=== PATIENT | female | born 1975 | race Caucasian/White ===

== ENCOUNTER 2018-06-05 15:42 | Emergency (ER) | payer OTHER ==
[~2018-06-05] VITALS: Ht 160 cm; Wt 99.9 kg
[2018-06-05] MEDS ORDERED: ROBA500T PO (17:22)
[2018-06-05] MEDS ORDERED: IBUP-1022 PO (17:22)
[2018-06-05 17:26] VITALS: BP 148/81
--- NOTE | 2018-06-05 18:48 | REP ---
RIGHT ELBOW, FOUR VIEWS: HISTORY: Elbow pain. There is no acute fracture or dislocation. The joint space is normal in appearance. IMPRESSION:There is no acute fracture or dislocation. Electronically Signed by Salvador Cross MD 06/05/2018 06:58 P
--- NOTE | 2018-06-05 18:49 | REP ---
UNILATERAL RIGHT RIBS, PA CHEST, FIVE VIEWS: HISTORY: Rib pain. The lungs are clear. The heart is normal in size. The pulmonary vasculature os normal in appearance. The bony structure is intact. IMPRESSION:No acute disease. Electronically Signed by Salvador Cross MD 06/05/2018 06:59 P
== END 2018-06-05 17:29 | disposition home or self-care (01) ==
LOC: M ED 15:42
DX: S50.01XA Contusion of right elbow, initial encounter (principal); S20.221A Contusion of right back wall of thorax, initial encounter; V43.52XA Car driver injured in collision with other type car in traffic accident, initial encounter; Y92.9 Unspecified place or not applicable; Y93.9 Activity, unspecified; Y99.9 Unspecified external cause status; Z88.5 Allergy status to narcotic agent; Z88.6 Allergy status to analgesic agent; Z91.018 Allergy to other foods

== ENCOUNTER → 2020-09-14 | Outpatient (CLI) | payer OTHER ==
[~2020-09-14] MED LIST: IBUP-1022 PO; ROBA500T PO; ULTR50TA8 PO
[2020-09-14 15:57] LABS: BASO # 0.1 10^3/uL (0.0-0.2); BASO % 0.9 % (0.0-1.0); EOS # 0.1 10^3/uL (0.0-0.5); EOS % 0.8 % (0.0-3.0); HEMATOCRIT 32.1 % (36.0-47.0); HEMOGLOBIN 9.2 g/dl (12.0-15.5); LYMPH # 1.7 10^3/uL (1.5-5.0); LYMPH % 21.1 % (24.0-44.0); MEAN CORPUSCULAR HEMOGLOBIN 20.6 pg (27.0-33.0); MEAN CORPUSCULAR HGB CONC 28.7 g/dl (32.0-36.5); MEAN CORPUSCULAR VOLUME 71.8 fl (80.0-96.0); MONO # 0.6 10^3/uL (0.0-0.8); MONO % 7.2 % (2.0-8.0); NEUTROPHILS # 5.5 10^3/uL (1.5-8.5); NEUTROPHILS % 69.7 % (36.0-66.0); PLATELET COUNT, AUTOMATED 294 10^3/uL (150-450); RED BLOOD COUNT 4.47 10^6/uL (4.00-5.40); WHITE BLOOD COUNT 7.8 10^3/uL (4.0-10.0)
[2020-09-14 16:27] LABS: ERYTHROCYTE SEDIMENTATION RATE 44 mm/hr (0-20)
== END ==
LOC: M RAD 15:23
PROVIDERS: ATTEND Physician Assistant
DX: N63.21 Unspecified lump in the left breast, upper outer quadrant (principal)

== ENCOUNTER → 2020-09-24 | Outpatient (REF) | payer OTHER ==
[~2020-09-24] MED LIST changes: -ULTR50TA8 PO
== END ==
LOC: M SFHCWAGY 18:18
PROVIDERS: ATTEND Surgery
DX: L98.9 Disorder of the skin and subcutaneous tissue, unspecified (principal)

== ENCOUNTER → 2020-09-29 | Outpatient (CLI) | payer OTHER ==
[2020-09-29 16:24] VITALS: BP 138/84
--- NOTE | 2020-09-30 08:57 | REP ---
INDICATION: N63.20 LT BREAST LUMP,POST US GUIDED BX,N63.10 RT BREAST MAS. COMPARISON: None TECHNIQUE: Bilateral diagnostic digital mammography was carried out in the CC and MLO projections using both 2D and 3D modalities. There are no priors for comparison. By history, patient complains of a left axillary mass. Patient also complains of a palpable abnormality in the right breast near the 12 o'clock position and an additional palpable area in the left breast upper outer quadrant. Bilateral diagnostic ultrasonography was also performed using anatomical intelligence and shear wave elastography FINDINGS: The breasts are symmetric in size and shape. Dense heterogenous nodular fibroglandular elements are seen bilaterally to such a degree that the sensitivity of the mammogram in detecting cancer is decreased. The breasts are symmetric in size and shape. There is a large axillary mass left breast. Spot compression views of the left breast over the additional palpable abnormality reveals no definite mass. Dense nodular breast tissue was identified. The right breast spot compression views over the region of interest shows no evidence of a mass. Dense nodular breast tissue was identified. Diagnostic ultrasound left breast upper outer quadrant near 1 o'clock in the region of the palpable mass shows a solid 0.8 x 0.4 x 0.6 cm size nodule. Shear wave elastography was performed on this showing kPa values in the 20s. Diagnostic ultrasound right breast at the 12 o'clock region of interest shows an irregular solid nodule which measures 7 x 3 x 5 mm. Shear wave elastography was performed on this again showing kPa values in the 20s. The large left breast axillary mass was not evaluated with ultrasound since I have been given history prior to reading this examination that biopsy of this has been pre determined by the referring physician. That was at least in part based on the ultrasound which was performed on 09/14/2020 which showed a solid mass corresponding to the palpable abnormality seen on the left breast MLO today. The Volpara volumetric breast density pattern is C. IMPRESSION: BIRADS/ACR category 4 mammogram and bilateral breast ultrasound. Two solid nodules are seen ultrasonographically 1 in each breast, as described above, and for which biopsy is recommended. Additionally, there is a large left breast axillary mass seen on today's mammogram and on a prior ultrasound as described above. Due to the patient's breast density score of C consider bilateral whole breast screening ultrasound and breast MRI. This patient's Tyrer-Cuzick lifetime breast cancer risk assessment score is 12%. This mammogram was interpreted with the aid of an FDA-approved computer-aided detection system. The patient states she had a clinical breast exam in September 2020. The patient letter being requested is M4. RECOMMENDATION: As above <Electronically signed by Sandoval Cho > 09/30/20 0834
--- NOTE | 2020-10-05 20:09 | ROOPDOC ---
[facility] Report Of Operation Report of Operation DATE OF PROCEDURE: 09/29/20 DIAGNOSIS: left breast suspicious lesion PROCEDURE: ultrasound guided biopsy of the left breast suspicious lesion with clip placement SURGEON: Bree Flowers BLOOD LOSS: minimal COMPLICATIONS: none Lidocaine 1% LOT [id number] Expiration 05/2023 Sodium Bicarbonate 8.4% LOT [id number] Expiration 03/2021 Hydromark clip LOT [id number] Expiration 01/2023 SHAPE: 4 Bx device: BARD Awyezxo59O x10 cm LOT [id number] Expiration 05/2023 Informed consent was obtained. The most common risk and possible complications including bleeding, hematoma, bruising, infection, injury to surrounding structures were explained to the patient and the patient expressed understanding. Patient was placed on the bed in the supine position. Appropriate time out was done stating patients name, date of , and the procedure to be performed. The left breast was prepped and draped in the usual fashion. The ultrasound was used to confirm the location of the lesion in the left breast extending from 11:00 to 2:00 in the upper breast. Plain Lidocaine 1% and 8.4% sodium bicarbonate 10:1 mix was used to anesthetize the skin, the biopsy site and tissues along the anticipated biopsy tract. Small skin incision was made with blade number 11. BARD Marquee 14G cannula with introducer ([id number]) was inserted through the incision and advanced under the ultrasound guidance to position immediately adjacent to the lesion. Next, the introducer was removed and BARD Marquee 14G biopsy device was places in the cannula. Pre-biopsy imaging, and post-biopsy imaging were captured. Five good core biopsies were taken at various levels of the lesion. Specimen was placed in formaldehyde, labeled with appropriate biopsy site and patients name, and sent to pathology for evaluation. Next, the biopsy device was withdrawn and a clip introducer was inserted into the biopsy site via the cannula. SHAPE 4 Hydromark clip was deployed under sonographic guidance. Post-clip placement image was captured. Manual pressure over the biopsy cavity and tract was held after the clip intr oducer was withdrawn. No bleeding was noted upon removal of the pressure. Post-biopsy mammogram of the left breast was obtained and showed clip in expected position. Postprocedural dressing was placed. Patient tolerated procedure well. Discharge instructions were discussed with the patient and the patient expressed understanding. BREE FLOWERS DO Oct 05, 2020 20:09
== END ==
LOC: M WHCPRO 06:34
PROVIDERS: ATTEND Surgery
DX: N60.22 Fibroadenosis of left breast (principal)
CPT/HCPCS: 19083; 76642; 77066; 88305; G0279

== ENCOUNTER → 2020-10-06 | Outpatient (CLI) | payer OTHER ==
[2020-10-06 12:10] VITALS: BP 148/86
--- NOTE | 2020-10-06 13:02 | REP ---
INDICATION: N63.10 RT BREAST MASS. COMPARISON: Comparison sonography 29 September 2020. TECHNIQUE: Targeted right breast sonography. 12-1 o'clock region. FINDINGS: Previous right breast sonography showed a 7 mm hypoechoic area 3.9 cm from the nipple. this oval-shaped hypoechoic nodule is again seen measuring 7 x 3 by 4 mm. This is to be targeted by ultrasound guided needle biopsy procedure following this exam by Dr. Bailon. 5 cm from the nipple at the 12 o'clock position, there is a somewhat angular appearing hypoechoic nodule measuring 6 x 2 x 4 mm. Because of this angular margin, this nodule is is to be targeted by ultrasound guided needle biopsy performed by Dr. Bailon as well. At the 1 o'clock position, 6 cm from the nipple there is a 6 x 5 x 4 mm hypoechoic area with a echogenic hilar notch like configuration most consistent with a small intramammary lymph node. IMPRESSION: Three hypoechoic nodules are identified in the right breast as above. Two of these are sampled histologically under ultrasound guidance by Dr. Bailon just following the study. The 3rd is felt to be BI-RADS category 3 probably benign finding most likely a 6 mm intramammary lymph node. Consider six-month follow-up sonography. <Electronically signed by Alberto Osborn > 10/06/20 [id number]
--- NOTE | 2020-10-06 21:23 | ROOPDOC ---
[facility] Report Of Operation Report of Operation DATE OF PROCEDURE: 10/06/20 DIAGNOSIS: bilateral suspicious breast lesions in Right breast at 12:00 3 CFN, Right breast at 12:00 5 CFN, and Left breast at 1:00 5CFN PROCEDURE: ultrasound guided biopsy of bilateral suspicious breast lesions in Right breast at 12:00 3 CFN, Right breast at 12:00 5 CFN, and Left breast at 1:00 5CFN with clips placement SURGEON: Bree Flowers BLOOD LOSS: minimal COMPLICATIONS: none Lidocaine 1% LOT [id number] Expiration 03/2024 Sodium Bicarbonate 8.4% LOT [id number] Expiration 03/2021 LEFT BREAST BIOPSY 1:00 5CFN Hydromark clip LOT [id number] Expiration 06/2023 SHAPE: 3 Bx device: BARD Zatynct78R x10 cm LOT [id number] Expiration 12/2022 RIGHT BREAST BIOPSY 12:00 3CFN Hydromark clip LOT [id number] Expiration 06/2023 SHAPE: 3 Bx device: BARD Czbontn63O x10 cm LOT [id number] Expiration 12/2022 RIGHT BREAST BIOPSY 12:00 5CFN Hydromark clip LOT [id number] Expiration 06/2023 SHAPE: 4 Bx device: BARD Scghexl74C x10 cm LOT [id number] Expiration 12/2022 Informed consent was obtained. The most common risk and possible complications including bleeding, hematoma, bruising, infection, injury to surrounding structures were explained to the patient and the patient expressed understanding. Patient was placed on the bed in the supine position. Appropriate time out was done stating patients name, date of , and the procedure to be performed. Upon sonographic examination of the left and right breasts it was noted that in the right breast, in addition to lesion at 12:00 3CFN, there is additional suspicious lesion at 12:00 5CFN and 1:00 6CFN. Formal US of those lesions was done and STAT read was requested. I discussed case with Dr Osborn, who suggested doing biopsy the lesion at 12:00 5 CFN in addition to biopsy of the lesion at 12:[address] Osborn felt that the right breast 1:00 lesion may represent intramammary lymph node. BIRADS 3 category was assigned to this lesion and 6 mnth sonographic examination was recommended. Procedure was started with left breast biopsy. The left breast was prepped and draped in the usual fashion. The ultrasound was used to confirm the location of the lesion in the left breast at 1:00 5 centimeters from the nipple. Plain Lidocaine 1% and 8.4% sodium bicarbonate 10:1 mix was used to anesthetize the skin, the biopsy site and tissues along the anticipated biopsy tract. Small skin incision was made with blade number 11. BARD Marquee 14G cannula with introducer ([id number]) was inserted through the incision and advanced under the ultrasound guidance to position immediately adjacent to the lesion. Next, the introducer was removed and BARD Marquee 14G biopsy device was places in the cannula. Pre-biopsy imaging, and post-biopsy imaging were captured. Five good core biopsies were taken at various levels of the lesion. Specimen was placed in formaldehyde, labeled with appropriate biopsy site and patients name, and sent to pathology for evaluation. Next, the biopsy device was withdrawn and a clip introducer was inserted into the biopsy site via the cannula. SHAPE 3Hydromark clip was deployed under sonographic guidance. Post-clip placement image was captured. Manual pressure over the biopsy cavity and tract was held after the clip introducer was withdrawn. No bleeding was noted upon removal of the pressure. At this point our attention was turned toward the right breast. We started with the lesion at 12:00 3 CFN. The right breast was prepped and draped in the usual fashion. The ultrasound was used to confirm the location of the lesion in the right breast at 12:00 3 centimeters from the nipple. Plain Lidocaine 1% and 8.4% sodium bicarbonate 10:1 mix was used to anesthetize the skin, the biopsy site and tissues along the anticipated biopsy tract. Small skin incision was made with blade number 11. BARD Marquee 14G cannula with introducer ([id number]) was inserted through the incision and advanced under the ultrasound guidance to position immediately adjacent to the lesion. Next, the introducer was removed and BARD Marquee 14G biopsy device was places in the cannula. Pre-biopsy imaging, and post-biopsy imaging were captured. Five good core biopsies were taken at various levels of the lesion. Specimen was placed in formaldehyde, labeled with appropriate biopsy site and patients name, and sent to pathology for evaluation. Next, the biopsy device was withdrawn and a clip introducer was inserted into the biopsy site via the cannula. SHAPE 3 Hydromark clip was deployed under sonographic guidance. Post-clip placement image was captured. Manual pressure over the biopsy cavity and tract was held after the clip introducer was withdrawn. No bleeding was noted upon removal of the pressure. Next, we proceeded with the biopsy of right breast at 12:00 5 CFN. The ultrasound was used to confirm the location of the lesion in the right breast at that site. Plain Lidocaine 1% and 8.4% sodium bicarbonate 10:1 mix was used to anesthetize the skin, the biopsy site and tissues along the anticipated biopsy tract. Small skin incision was made with blade number 11. BARD Marquee 14G cannula with introducer ([id number]) was inserted through the incision and advanced under the ultrasound guidance to position immediately adjacent to the lesion. Next, the introducer was removed and BARD Marquee 14G biopsy device was places in the cannula. Pre-biopsy imaging, and post-biopsy imaging were captured. Three good core biopsies were taken at various levels of the lesion. No additional samples were taken as the lesion become poorly visible. Specimen was placed in formaldehyde, labeled with appropriate biopsy site and patients name, and sent to pathology for evaluation. Next, the biopsy device was withdrawn and a clip introducer was inserted into the biopsy site via the cannula. SHAPE 4 Hydromark clip was deployed under sonographic guidance. Post-clip placement image was captured. Manual pressure over the biopsy cavity and tract was held after the clip in troducer was withdrawn. No bleeding was noted upon removal of the pressure. Post-biopsy mammography of the bilateral breasts was obtained and showed clips in expected position. Postprocedural dressing was placed. Patient tolerated procedure well. Discharge instructions were discussed with the patient and the patient expressed understanding. BREE FLOWERS DO Oct 06, 2020 21:23
== END ==
LOC: M WHCPRO 06:38
PROVIDERS: ATTEND Surgery
DX: D24.1 Benign neoplasm of right breast (principal); D24.2 Benign neoplasm of left breast; N60.21 Fibroadenosis of right breast; N60.12 Diffuse cystic mastopathy of left breast; N63.20 Unspecified lump in the left breast, unspecified quadrant; N63.10 Unspecified lump in the right breast, unspecified quadrant

== ENCOUNTER → 2020-11-08 | Outpatient (CLI) | payer OTHER ==
[~2020-11-08] MED LIST changes: +PROHANCE 279.3MG/ML 15ML VIAL As Ordered ONE; +PROHANCE 279.3MG/ML 5ML VIAL As Ordered ONE
--- NOTE | 2020-11-08 15:57 | REP ---
INDICATION: ELKE BREAST MASS. 5.6 cm fibroadenoma by biopsy and recent breast imaging in the left breast superiorly. 11 o'clock position. COMPARISON: Comparison mammography September 29, 2020. Comparison left breast sonography September 14, 2020. Comparison sonography October 06, 2020 and mammography October 06, 2020. Patient is status post bilateral breast biopsies. TECHNIQUE: Three Alisa MRI imaging was performed with a dedicated breast coil. Axial, coronal, and sagittal T1 and T2 weighted scans were obtained with and without fat saturation in the usual fashion. The study includes dynamically acquired post gadolinium-enhanced imaging with image subtraction. Maximum intensity projection and multi planar reformation imaging is included as well. This study is interpreted with the aid of [employer], an FDA approved computer aided detection (CAD) software program, on a dedicated breast MRI workstation. The gadolinium enhancement dose is 18 mL of intravenous ProHance. FINDINGS: There is a moderate amount of fibroglandular tissue bilaterally corresponding with the mammographic pattern. There is mild to moderate background parenchymal enhancement. There is no evidence of axillary lymphadenopathy or significant breast cystic change. High-resolution pre and post-contrast T1 and T2 weighted scans show no suspicious morphologic abnormality in either breast. Dynamically acquired sequential postcontrast images show no suspicious area of enhancement and washout kinetics in either breast to suggest malignancy. Subtraction images show no additional abnormality. There are 2 HydroMARK needle biopsy device is in the right breast and 1 is visible in the left breast upper outer quadrant. There also appears to be a HydroMARK clip device in the large known left superior breast mass in the 11 o'clock position. This T2 hyperintense heterogeneous mass recently diagnosis fibroadenoma measures 4.5 cm right to left by 6.7 cm anterior to posterior by 3.1 cm cranial to caudal. It is heterogeneously T2 hyperintense and T1 hypointense with fairly homogeneous contrast enhancement. Its enhancement kinetics are type 3 continuous or benign pattern. In addition, in the medial aspect anterior 3rd left breast, there is a smaller enhancing mass with nonenhancing internal septations consistent with a benign fibroadenoma. This demonstrates type 3 enhancement characteristics as well. This measures 1.3 cm in greatest diameter. There does not appear to be a marker clip adjacent to this lesion. There is no suspicious morphologic mat abnormality in the right breast. No other mass lesion is observed. IMPRESSION: BI-RADS category 4 suspicious bilateral breast MRI findings. The recently biopsied enhancing mass in the left breast superiorly measures 6.7 cm in greatest diameter. Given its size, this should be surgically excised despite the benign fibroadenoma pathologic diagnosis. There is a 2nd 1.3 cm fibroadenoma in the medial aspect of the left breast. Needle biopsy marker clips as above. <Electronically signed by Alberto Osborn > 11/08/20 [id number]
== END ==
LOC: M RAD 13:01
PROVIDERS: ATTEND Surgery
DX: N63.20 Unspecified lump in the left breast, unspecified quadrant (principal); N63.10 Unspecified lump in the right breast, unspecified quadrant
CPT/HCPCS: A9576; C8908

== ENCOUNTER 2020-11-16 06:04 | Day surgery (SDC) | payer OTHER ==
[~2020-11-16] VITALS: Ht 160 cm; Wt 90.3 kg
[~2020-11-16 06:04] MED LIST changes: +HEPARIN SOD (PORCINE) 5000UNITS/ML 1ML VIAL/SYRINGE SQ ONE; +LR 1,000 ML IV ONE; -PROHANCE 279.3MG/ML 15ML VIAL As Ordered ONE; -PROHANCE 279.3MG/ML 5ML VIAL As Ordered ONE; +ceFAZolin SOD 1 GM in D5W MINI-BAG PLUS 50 ML IV ONE
[2020-11-16] MEDS ORDERED: ceFAZolin SOD 1 GM in D5W MINI-BAG PLUS 50 ML IV ONE (06:05)
[2020-11-16] MEDS ORDERED: MIDAZOLAM INJ 2MG/2ML VIAL (J2250 PER 1MG) As Ordered ONE (07:00)
[2020-11-16] MEDS ORDERED: fentaNYL 100 MCG/2 ML INJECTION (J3010) As Ordered ONE ×2 (07:01→08:08)
[2020-11-16] MEDS ORDERED: LIDOCAINE 2% 100MG/5ML SDV (FOR ANES.) As Ordered ONE (07:03)
[2020-11-16] MEDS ORDERED: LIDOCAINE 1% SDV 30ML VIAL As Ordered ONE (07:14)
[2020-11-16] MEDS ORDERED: BUPIVACAINE HCL 0.25% 30ML VIAL As Ordered ONE (07:14)
[2020-11-16] MEDS ORDERED: propofoL 200 MG/20 ML VIAL As Ordered ONE ×2 (07:43→08:10)
[2020-11-16] MEDS ORDERED: dexameTHASONE 4 MG/ML 1ML VIAL (J1100 PER 1MG) As Ordered ONE (07:43)
[2020-11-16] MEDS ORDERED: ACETAMINOPHEN 1000MG 100ML IV BTL (OFIRMEV) (J0131 PER 10MG) As Ordered ONE (07:48)
[2020-11-16] MEDS ORDERED: ONDANSETRON 4MG/2ML VIAL As Ordered ONE (07:55)
[2020-11-16] MEDS ORDERED: ePHEDrine SULFATE 25 MG/5 ML(5MG/ML) SYRINGE As Ordered ONE (07:57)
[2020-11-16] MEDS ORDERED: ULTR50TA8 PO (09:46)
[2020-11-16] MEDS ORDERED: fentaNYL 100 MCG/2 ML INJECTION (J3010) IV PRN (09:55)
[2020-11-16] MEDS ORDERED: LR 1,000 ML IV SCH (09:55)
[2020-11-16] MEDS ORDERED: ONDANSETRON 4MG/2ML VIAL IV PRN (09:55)
[2020-11-16 11:10] VITALS: BP 128/80
--- NOTE | 2020-11-16 14:42 | REP ---
INDICATION: LEFT BREAST BIOPSY. COMPARISON: Comparison mammography September 29, 2020. TECHNIQUE: Specimen radiography, total of 8 views including photographs. FINDINGS: A sequence of 8 images demonstrate 2 surgical specimens 16.6 cm in diameter which contains a needle biopsy marker clip and the other 1.9 cm in diameter. Neither of these contains microcalcifications. IMPRESSION: Specimen radiography left breast. <Electronically signed by Alberto Osborn > 11/16/20 1922
--- NOTE | 2020-11-16 19:58 | ROOPDOC ---
[facility] Report Of Operation Report of Operation DATE OF PROCEDURE: 11/16/20 PREPROCEDURE DIAGNOSES: Large left breast fibroadenoma at 12:00 and second left breast mass at 9:00 POSTPROCEDURE DIAGNOSES: same PROCEDURE PERFORMED: Left breast excisional biopsy at 12:00 and at 9:00 SURGEON: Dr Bree Bailon ANESTHESIA: general ESTIMATED BLOOD LOSS: Approximately 15 mL. COMPLICATIONS: none SPECIMENS REMOVED: left breast 12:00 and 9:00 excisional biopsy - see below for details PROCEDURE NOTE: INDICATIONS: Ms. Landry is a 45-year-old woman who was found to have large palpable mass in the left breast. Diagnostic imaging was done and confirmed presence of large left breast mass which was considered suspicious. US guided biopsy was done since the lesion was also seen on sonography. Pathology showed fibroadenoma. Patient underwent MRI of the breast. Second mass in the left medial breast was found on MRI. This had characteristics of fibroadenoma as well. Excisional biopsy of the left breast was offered to the patient due to the size of large fibroadenoma. I discussed with the patient that if I am able to easily identify the second mass which was seen on MRI of the breast, I will remove it at the time of index surgery. Patient wished to proceed. Patient was medically cleared for surgery by the primary care doctor. Risks and possible complications of surgical procedure including bleeding, infection and injury to surrounding structures were explained to the patient and she wished to proceed. Consent was signed. My initials were placed on the operative site. Subcutaneous injection of 5000 units of heparin was done in Preop. DETAILS: Patient was taken to the operating room and placed on the operating room table. A sign in was called stating patients name, date of and the procedure to be done. Preoperative antibiotics were infused. Smooth induction of general anesthesia was done. Patients hands were extended on arm rests. Care was taken not to over extend the arms. Pillow was placed under the knees and a foam was placed under the heels. Sequential compression devices were placed and assured to function correctly. Patients left breast and axilla were prepped and draped in the usual fashion. Appropriate time out was done. Patients name, date of , and the procedure to be done were confirmed. Intraop Ultrasound was used to confirm location of the large palpable mass at 12:00. Hydromark clip was also noted inside the mass. Limited US of the left medial breast also showed possible sonographic correlate to MRI visible new mass. This is located at 9:00. Next, local anesthetic using 1% lidocaine and 0.25 % Marcaine 50/50 mix was injected at the site of planned left periareolar incision. The incision was made with the scalpel. Subcutaneous skin flaps were raised. Sharp dissection was carried toward the palpable mass. Intraop US was again used to guide the dissection. Palpable mass capsule was noted. Blunt dissection was done at this point to free the palpable mass from the surrounding attachments. Anchoring stitch was also placed to allow manipulation of the mass and to continue separation of the deeper aspects of the mass from the surrounding tissues. The excisional biopsy specimen was carefully removed from the breast keeping its proper orientation and moved to the back table where margins were marked with the surgical inking kit following the standard colors recommendations. Specimen measured 6x5 cm. Specimen was then placed on the grid and placed in [email or web address] Specimen Imaging System. The image revealed large mass with hydromark clip in the specimen. The specimen was labeled with patients name and left excisional biopsy at 12:00 and sent to pathology. At this time, my attention was turned toward the possible sonographic correlate of a mass seen on MRI of the breast. Intraop US was used to identify the lesion again at 9:00. Gentle dissection was carried toward the are of sonographic target. A white and dense lesion was identified and carefully excised. This is felt to correspond with MRI visible target. While keeping its proper orientation, the second specimen was then moved to the back table where margins were marked with the surgical inking kit following the standard colors recommendations. Specimen measured 2x2 cm. Specimen was then placed on the grid and placed in [email or web address] Specimen Imaging System. The image revealed a small mass without calcifications. The specimen was labeled with patients name and left excisional biopsy at 9:00 and sent to pathology. Next, the wound was irrigated thoroughly and adequate hemostasis was assured. Additional local anesthetic was injected into surrounding tissues. space was approximated with 2-0 Vicryl. The dermis was closed with 3-0 Vicryl and skin was closed with 4-0 Monocryl. Surgical glue was placed over the incision. Patient emerged from the anesthesia without any problems. Fluffs were placed over the operative site and patients chest was wrapped snuggly in the SAMANTHA wrap. Sponge and instrument counts were done and were correct. Patient tolerated procedure well and was taken to recovery unit in stable condition. BREE BAILON DO Nov 16, 2020 19:58
== END 2020-11-16 11:13 | disposition home or self-care (01) ==
LOC: M SDC 06:04
PROVIDERS: ATTEND Surgery
DX: D24.2 Benign neoplasm of left breast (principal); Z87.891 Personal history of nicotine dependence; Z88.5 Allergy status to narcotic agent; Z91.013 Allergy to seafood; Z91.018 Allergy to other foods
CPT/HCPCS: 19125; 19126; 36415; 81025; 86850; 86900; 86901; 88305; J0131; J0690; J1100; J1644; J2250; J2405; J3010

== ENCOUNTER → 2021-05-02 | Outpatient (CLI) | payer OTHER ==
[~2021-05-02] MED LIST changes: -HEPARIN SOD (PORCINE) 5000UNITS/ML 1ML VIAL/SYRINGE SQ ONE; -LR 1,000 ML IV ONE; +ULTR50TA8 PO; -ceFAZolin SOD 1 GM in D5W MINI-BAG PLUS 50 ML IV ONE
== END ==
LOC: M WHC 10:06
PROVIDERS: ATTEND Surgery
DX: N63.20 Unspecified lump in the left breast, unspecified quadrant (principal)